=== PATIENT | female | born 1940 | race Two or more races ===

== ENCOUNTER 2021-02-03 16:25 | Inpatient (IN) | payer MEDICARE, MEDICAID ==
[~2021-02-03] VITALS: Ht 152.4 cm; Wt 54.0 kg
[2021-02-03] MEDS ORDERED: GUAIFENESIN 200MG/10ML SUGAR FREE UDC PO PRN (17:15)
[2021-02-03] MEDS ORDERED: MAGNESIUM/ALUMINUM HYDROXIDE/SIMETHICONE 30ML UDC PO PRN (17:15)
[2021-02-03] MEDS ORDERED: CLONIDINE 0.1MG TABLET PO PRN (17:15)
[2021-02-03] MEDS ORDERED: DOCUSATE SODIUM 100MG CAPSULE PO PRN (17:15)
[2021-02-03] MEDS ORDERED: DIPHENHYDRAMINE 50MG CAPSULE PO PRN (17:15)
[2021-02-03] MEDS ORDERED: ONDANSETRON HCL 4MG TABLET PO PRN (17:15)
[2021-02-03] MEDS ORDERED: ACETAMINOPHEN 650MG/20.3ML UDC PO PRN (17:15)
[2021-02-03] MEDS ORDERED: HYDRALAZINE HCL 10MG TABLET PO PRN (17:15)
[2021-02-03 17:53] VITALS: BP 124/72
[2021-02-03] MEDS ORDERED: WARFARIN SODIUM 5MG TABLET PO SCH (18:00)
[2021-02-03] MEDS ORDERED: WARFARIN SODIUM 7.5MG TABLET PO SCH (18:00)
[2021-02-03 20:00] VITALS: BP 109/63
[2021-02-03] MEDS: ATORVASTATIN CALCIUM 10MG TABLET PO SCH (20:13)
[2021-02-04] MEDS: ACETAMINOPHEN 325MG TABLET PO PRN ×2 (05:44→14:39)
[2021-02-04] MEDS: LEVOTHYROXINE SODIUM 25MCG TABLET PO SCH (05:44)
[2021-02-04 06:47] LABS: INR 2.1
[2021-02-04 06:49] LABS: CHLORIDE 110 mEq/L (98-107)
[2021-02-04 06:51] LABS: BASOPHILS % 0.5 % (0.0-2.0); EOSINOPHILS % 0.4 % (0.0-5.0); HEMATOCRIT. 36.3 % (36.0-48.0); HEMOGLOBIN. 12.5 g/dL (12.0-16.0); MEAN CORPUSCULAR HEMOGLOBIN 29.9 pg (28.0-32.0); MEAN CORPUSCULAR VOLUME 86.8 fL (81.0-99.0); MEAN PLATELET VOLUME 9.7 fl (7.4-10.4); MONOCYTES % 8.3 % (2.0-8.0); NEUTROPHILS % 70.8 % (40.0-76.0); PLATELET 171 x1000/uL (130-400); RED BLOOD CELL COUNT 4.18 mill/uL (4.2-5.4); RED CELL DISTRIBUTION WIDTH 14.9 % (11.6-14.6)
[2021-02-04 07:46] VITALS: BP 93/60
[2021-02-04] MEDS ORDERED: ENOXAPARIN 40MG/0.4ML SYR SUBCUT SCH (09:00)
[2021-02-04] MEDS ORDERED: BISACODYL 5MG TABLET PO PRN (14:15)
[2021-02-04] MEDS: DOCUSATE SODIUM 100MG CAPSULE PO SCH ×2 (14:15→17:00)
[2021-02-04] MEDS ORDERED: WARFARIN SODIUM 7.5MG TABLET PO SCH (18:00)
[2021-02-04] MEDS: WARFARIN SODIUM 5MG TABLET PO SCH (18:42)
[2021-02-04 20:00] VITALS: BP 118/46
[2021-02-04] MEDS: ATORVASTATIN CALCIUM 10MG TABLET PO SCH (20:33)
[2021-02-04] MEDS ORDERED: LACTULOSE 20G/30ML UDC PO PRN (21:00)
[2021-02-05] MEDS: LEVOTHYROXINE SODIUM 25MCG TABLET PO SCH (06:01)
[2021-02-05] MEDS: ACETAMINOPHEN 325MG TABLET PO PRN ×2 (06:02→22:37)
[2021-02-05 08:03] VITALS: BP 97/68
[2021-02-05] MEDS: DOCUSATE SODIUM 100MG CAPSULE PO SCH ×2 (09:59→18:19)
[2021-02-05 10:25] LABS: BASOPHILS % 0.7 % (0.0-2.0); EOSINOPHILS % 1.6 % (0.0-5.0); HEMATOCRIT. 36.2 % (36.0-48.0); HEMOGLOBIN. 12.3 g/dL (12.0-16.0); LYMPHOCYTES % 27.6 % (20.0-50.0); MEAN CORPUSCULAR HEMOGLOBIN 29.4 pg (28.0-32.0); MEAN CORPUSCULAR VOLUME 86.5 fL (81.0-99.0); MEAN PLATELET VOLUME 10.1 fl (7.4-10.4); MONOCYTES % 6.6 % (2.0-8.0); NEUTROPHILS % 63.5 % (40.0-76.0); PLATELET 189 x1000/uL (130-400); RED BLOOD CELL COUNT 4.18 mill/uL (4.2-5.4); RED CELL DISTRIBUTION WIDTH 15.2 % (11.6-14.6)
[2021-02-05 10:33] LABS: INR 2.7; PROTHROMBIN TIME 26.5 sec (9.6-11.0)
[2021-02-05 10:36] LABS: CHLORIDE 110 mEq/L (98-107)
[2021-02-05] MEDS: WARFARIN SODIUM 5MG TABLET PO SCH (18:19)
[2021-02-05 20:00] VITALS: BP 97/44
[2021-02-05] MEDS: ATORVASTATIN CALCIUM 10MG TABLET PO SCH (20:25)
[2021-02-06] MEDS: LEVOTHYROXINE SODIUM 25MCG TABLET PO SCH (06:03)
[2021-02-06] MEDS: ACETAMINOPHEN 325MG TABLET PO PRN ×2 (06:03→12:13)
[2021-02-06 07:19] LABS: INR 2.9; PROTHROMBIN TIME 28.7 sec (9.6-11.0)
[2021-02-06 07:55] VITALS: BP 132/68
[2021-02-06] MEDS: DOCUSATE SODIUM 100MG CAPSULE PO SCH ×2 (08:27→17:20)
[2021-02-06] MEDS: WARFARIN SODIUM 5MG TABLET PO SCH (17:20)
[2021-02-06 20:00] VITALS: BP 120/56
[2021-02-06] MEDS: ATORVASTATIN CALCIUM 10MG TABLET PO SCH (20:59)
[2021-02-07] MEDS: ACETAMINOPHEN 325MG TABLET PO PRN (00:14)
[2021-02-07] MEDS: LEVOTHYROXINE SODIUM 25MCG TABLET PO SCH (06:13)
[2021-02-07 06:53] LABS: PROTHROMBIN TIME 38.7 sec (9.6-11.0)
[2021-02-07 08:00] VITALS: BP 140/66
[2021-02-07] MEDS: DOCUSATE SODIUM 100MG CAPSULE PO SCH ×2 (08:50→17:25)
[2021-02-07 20:00] VITALS: BP 133/58
[2021-02-07] MEDS: ATORVASTATIN CALCIUM 10MG TABLET PO SCH (21:48)
[2021-02-08] MEDS: ACETAMINOPHEN 325MG TABLET PO PRN (06:13)
[2021-02-08] MEDS: LEVOTHYROXINE SODIUM 25MCG TABLET PO SCH (06:13)
[2021-02-08 07:07] LABS: INR 2.8; PROTHROMBIN TIME 27.9 sec (9.6-11.0)
[2021-02-08 07:26] VITALS: BP 106/56
[2021-02-08] MEDS: DOCUSATE SODIUM 100MG CAPSULE PO SCH ×2 (08:31→17:06)
[2021-02-08] MEDS: WARFARIN SODIUM 7.5MG TABLET PO SCH (17:06)
[2021-02-08 20:00] VITALS: BP 124/63
[2021-02-08] MEDS: ATORVASTATIN CALCIUM 10MG TABLET PO SCH (20:28)
[2021-02-09] MEDS: LEVOTHYROXINE SODIUM 25MCG TABLET PO SCH (05:58)
[2021-02-09 07:36] VITALS: BP 95/60
[2021-02-09] MEDS: DOCUSATE SODIUM 100MG CAPSULE PO SCH ×2 (08:20→16:40)
[2021-02-09 15:49] LABS: INR 2.6; PROTHROMBIN TIME 25.7 sec (9.6-11.0)
[2021-02-09] MEDS: WARFARIN SODIUM 7.5MG TABLET PO SCH (17:16)
[2021-02-09 20:00] VITALS: BP 94/54
[2021-02-09] MEDS: ATORVASTATIN CALCIUM 10MG TABLET PO SCH (22:08)
[2021-02-10] MEDS: ACETAMINOPHEN 325MG TABLET PO PRN ×3 (01:46→21:07)
[2021-02-10] MEDS: LEVOTHYROXINE SODIUM 25MCG TABLET PO SCH (06:20)
[2021-02-10 07:11] LABS: HEMATOCRIT 35.9 % (36.0-48.0); HEMOGLOBIN 11.8 g/dL (12.0-16.0); MEAN CORPUSCULAR HEMOGLOBIN 28.1 pg (28.0-32.0); MEAN CORPUSCULAR VOLUME 85.9 fL (81.0-99.0); PLATELET 224 x1000/uL (130-400); RED BLOOD CELL COUNT 4.18 mill/uL (4.2-5.4)
[2021-02-10 07:16] LABS: INR 2.7; PROTHROMBIN TIME 27.2 sec (9.6-11.0)
[2021-02-10 07:51] VITALS: BP 163/91
[2021-02-10 07:52] VITALS: BP 137/79
[2021-02-10] MEDS: DOCUSATE SODIUM 100MG CAPSULE PO SCH ×2 (08:37→17:00)
[2021-02-10] MEDS: WARFARIN SODIUM 7.5MG TABLET PO SCH (18:54)
[2021-02-10 20:00] VITALS: BP 102/58
[2021-02-10] MEDS: ATORVASTATIN CALCIUM 10MG TABLET PO SCH (21:06)
[2021-02-11] MEDS: LEVOTHYROXINE SODIUM 25MCG TABLET PO SCH (06:18)
[2021-02-11] MEDS: ACETAMINOPHEN 325MG TABLET PO PRN (06:19)
[2021-02-11 07:00] LABS: BASOPHILS % 0.8 % (0.0-2.0); EOSINOPHILS % 3.1 % (0.0-5.0); HEMATOCRIT. 35.3 % (36.0-48.0); HEMOGLOBIN. 11.7 g/dL (12.0-16.0); LYMPHOCYTES % 39.4 % (20.0-50.0); MEAN CORPUSCULAR HEMOGLOBIN 28.8 pg (28.0-32.0); MEAN CORPUSCULAR VOLUME 86.9 fL (81.0-99.0); MEAN PLATELET VOLUME 9.2 fl (7.4-10.4); MONOCYTES % 9.3 % (2.0-8.0); NEUTROPHILS % 47.4 % (40.0-76.0); PLATELET 196 x1000/uL (130-400); RED BLOOD CELL COUNT 4.06 mill/uL (4.2-5.4)
[2021-02-11 07:11] LABS: CHLORIDE 111 mEq/L (98-107)
[2021-02-11 07:35] LABS: INR 3.2
[2021-02-11 08:02] VITALS: BP 162/85
[2021-02-11] MEDS: DOCUSATE SODIUM 100MG CAPSULE PO SCH ×2 (08:06→17:01)
[2021-02-11] MEDS ORDERED: WARFARIN SODIUM 5MG TABLET PO SCH (18:00)
[2021-02-11] MEDS ORDERED: MIRT15TA6 PO (18:38)
[2021-02-11] MEDS ORDERED: WARF-53 PO (18:40)
[2021-02-11] MEDS ORDERED: BUSP10TA4 PO (18:40)
[2021-02-11] MEDS ORDERED: NAPR375T5 PO (18:41)
[2021-02-11] MEDS ORDERED: LEVO25TA2 PO (18:41)
[2021-02-11] MEDS ORDERED: SIMV-46 PO (18:42)
[2021-02-11] MEDS ORDERED: DIGO125T2 PO (18:42)
[2021-02-11 20:00] VITALS: BP 142/55
[2021-02-11] MEDS: ATORVASTATIN CALCIUM 10MG TABLET PO SCH (20:54)
[2021-02-12] MEDS: LEVOTHYROXINE SODIUM 25MCG TABLET PO SCH (06:00)
[2021-02-12 06:50] LABS: INR 3.7; PROTHROMBIN TIME 35.4 sec (9.6-11.0)
[2021-02-12 07:52] VITALS: BP 133/70
[2021-02-12] MEDS: DOCUSATE SODIUM 100MG CAPSULE PO SCH (08:38)
[2021-02-12 12:56] VITALS: BP 133/70
== END 2021-02-12 14:00 | disposition home health service (06) | DRG 65 ==
PROVIDERS: ADMIT Psychiatry & Neurology Neurology; ATTEND Internal Medicine
DX: I63.9 Cerebral infarction, unspecified (principal); G93.40 Encephalopathy, unspecified; I48.19 Other persistent atrial fibrillation; I48.92 Unspecified atrial flutter; E03.9 Hypothyroidism, unspecified; E78.5 Hyperlipidemia, unspecified; F02.80 Dementia in other diseases classified elsewhere, unspecified severity, without behavioral disturbance, psychotic disturbance, mood disturbance, and anxiety; F17.210 Nicotine dependence, cigarettes, uncomplicated; G30.9 Alzheimer's disease, unspecified; F39 Unspecified mood [affective] disorder; I11.0 Hypertensive heart disease with heart failure; I35.0 Nonrheumatic aortic (valve) stenosis; I50.9 Heart failure, unspecified; R26.81 Unsteadiness on feet; R09.89 Other specified symptoms and signs involving the circulatory and respiratory systems; R53.1 Weakness; R79.1 Abnormal coagulation profile; Z86.73 Personal history of transient ischemic attack (TIA), and cerebral infarction without residual deficits; Z95.3 Presence of xenogenic heart valve; Z79.01 Long term (current) use of anticoagulants; R26.9 Unspecified abnormalities of gait and mobility
CPT/HCPCS: 36415; 80048; 82962; 85025; 85027; 92523; 92610; 97110; 97112; 97116; 97162; 97166; 97530; 97535; J1650